=== PATIENT | male | born 1980 | race Caucasian/White ===

== ENCOUNTER 2016-08-06 13:08 | Emergency (ER) | payer OTHER ==
[~2016-08-06] VITALS: Ht 175.3 cm; Wt 67.0 kg
[~2016-08-06 13:08] MED LIST: CITA10SO PO
[2016-08-06 13:09] VITALS: BP 136/70; PULSE 114; RESP 20; TEMP 97.8; O2SAT 98
--- NOTE | 2016-08-06 13:38 | PD ---
HPI Chief Complaint: Cold / Flu Symptoms Time Seen by Provider: 13:33 Travel History International Travel<30 days: No Contact w/Intl Traveler<30days: No Traveled to known affect area: No History of Present Illness HPI Patient comes in complaining of flulike symptoms that began yesterday. Patient complaining of headache, chills, subjective fevers, body aches, cough nonproductive, nausea, and sore throat. Patient denies doing anything for this. States it is progressively getting worse. Denies any vomiting, diarrhea , chest pain, shortness of breath, abdominal pain, ear pain, or neck pain. PFSH Past Medical History Blood Disorders: No Anxiety: Yes Depression: Yes Cancer: No Cardiovascular Problems: No Diminished Hearing: No Endocrine: No Genitourinary: No Immune Disorder: No Musculoskeletal: No Neurologic: No Psychiatric: Yes Reproductive: No Respiratory: No Past Surgical History Abdominal Surgery: Yes (RIGHT INGUINAL HERNIA) Social History Alcohol Use: No Tobacco Use: Yes (chewing tobacco) Substance Use: No Allergies-Medications (Allergen,Severity, Reaction): Coded Allergies: No Known Allergies (Verified , 08/06/16) Uncoded Allergies: LAUNDRY DETERGENT (Allergy, Intermediate, 07/03/10) Reported Meds & Prescriptions Reported Meds & Active Scripts Active Tamiflu (Oseltamivir Phosphate) 75 Mg Cap 75 Mg PO BID 5 Days Zofran Odt (Ondansetron Odt) 4 Mg Tab 4 Mg SL Q6HR PRN Reported Celexa (Citalopram Hydrobromide) 10 Mg/5 Ml Ana 10 Mg PO Review of Systems Except as stated in HPI: all other systems reviewed are Neg Physical Exam Narrative GENERAL: Well-developed, well nourished, in no acute distress, and non-ill appearing. SKIN: Warm and dry. HEAD: Atraumatic. Normocephalic. EYES: Pupils equal and round. EOMI. No scleral icterus. No injection or drainage. ENT: No nasal bleeding or discharge. Mucous membranes pink and moist. Tympanic membranes are pearly landon bilaterally. Posterior pharynx nonerythematous without exudate. Uvula is midline. No tenderness to facial sinuses to palpation. NECK: Trachea midline. No adenopathy. Supple. No nuclear rigidity. CARDIOVASCULAR: Regular rate and rhythm. No murmur appreciated. RESPIRATORY: No accessory muscle use. No respiratory distress. Clear to auscultation. Breath sounds equal bilaterally. GASTROINTESTINAL: Abdomen soft, non-tender, nondistended. Hepatic and splenic margins not palpable. Normal bowel sounds 4. No pulsatile mass. MUSCULOSKELETAL: No obvious deformities. No clubbing. No cyanosis. No edema. Full range of motion. NEUROLOGICAL: Awake and alert. No obvious cranial nerve deficits. Motor grossly within normal limits. Normal speech. PSYCHIATRIC: Appropriate mood and affect; insight and judgment normal. Data Data Last Documented VS Vital Signs Date Time Temp Pulse Resp B/P Pulse Ox O2 Delivery O2 Flow Rate FiO2 08/06/16 13:09 97.8 114 20 136/70 98 Room Air Orders Ondansetron Odt (Zofran Odt) (08/06/16 13:45) Ibuprofen (Motrin) (08/06/16 13:45) MDM Medical Decision Making Medical Screen Exam Complete: Yes Emergency Medical Condition: Yes Differential Diagnosis Influenza,, pneumonia, bronchitis, viral syndrome, other Narrative Course Patient looks great. Patients symptom complex is consistent with Influenza, or flu-like illness. The patient is tolerating fluids and is well hydrated. There is no evidence to suggest secondary infection (pneumonia, sepsis/bacteremia, etc.) at this time. I discussed with the patient, diagnosis, and plan of care and to follow up with the patients primary physician. I discussed with the patient regarding testing, even if rapid influenza negative, I would suspect false negative. I discussed with the patient initiating Tamiflu and the patient agreed with plan. The patient was instructed to return if the worsens in anyway , especially if not tolerating fluids, increased pain or swelling, difficulty swallowing or breathing, or as needed. The patient agreed with plan. Patient in no obvious distress upon re-evaluation. Patient was asked if they wanted to speak to my attending, which the patient did not wish to do at this time. Any questions/concerns in reference to patient diagnosis/condition discussed and clarified prior to patient's discharge. Reinforced sheer importance of close follow up with patient's primary physician or primary care clinic. Instructed patient to return to ED immediately, if symptoms return/ worsen. Pt showed understanding of above instructions. Further instructions and recommendations were detailed in discharge paperwork. Pt ambulated without difficulty out of ED at discharge. Diagnosis Primary Impression: Influenza Patient Instructions: General Instructions, Influenza (DC) Additional Instructions: Follow-up with your primary care physician this week for reevaluation. Take all medication as prescribed. Use [id number] Tylenol and/or ibuprofen as needed for pain and/or fevers. Follow instruction on the packaging. Drink plenty of non-caffeinated and nonalcoholic fluids. Return to the emergency department if symptoms get worse. Med/Other Pt SpecificInfo: Prescription(s) given Scripts Oseltamivir (Tamiflu)75 Mg Cap75 Mg PO BID 5 Days Ref 0 Prov:Tom Gonzalez MD 08/06/16 Ondansetron Odt (Zofran Odt)4 Mg Tab4 Mg SL Q6HR PRN (Nausea/Vomiting) #14 TAB Ref 0 Prov:Tom Gonzalez MD 08/06/16 Disposition: 01 DISCHARGE HOME Condition: Stable Yonathan Burrell Aug 06, 2016 13:38
[2016-08-06] MEDS ORDERED: OSEL75 PO (13:39)
[2016-08-06] MEDS ORDERED: ZOFR4TAB3 SL (13:39)
[2016-08-06] MEDS ORDERED: IBUPROFEN 800 MG TAB PO ONE (13:45)
[2016-08-06] MEDS ORDERED: ONDANSETRON ODT 4 MG TAB PO ONE (13:45)
== END 2016-08-06 13:50 | disposition home or self-care (01) ==
LOC: NEPB 13:08
DX: J11.1 Influenza due to unidentified influenza virus with other respiratory manifestations (principal); R51 Headache; R50.9 Fever, unspecified; M79.1 Myalgia; R05 Cough; R11.0 Nausea; R07.0 Pain in throat; Z72.0 Tobacco use; Z86.59 Personal history of other mental and behavioral disorders
CPT/HCPCS: 99283